=== PATIENT | male | born 1990 | race Caucasian/White ===

== ENCOUNTER 2024-10-17 12:49 | Outpatient (CLI) | payer OTHER, SELFPAY ==
--- NOTE | 2024-10-17 13:05 | XR_ITS ---
WS: [id number] Exam: XR hip BI 3-4V wo/w pel [id number] Date/Time of Exam: 10/17/2024 1:07 PM Reason For Exam: BILATERAL HIP PAIN No fracture. The joint compartments of both hips are well preserved. Normal bilateral soft tissues. XR/XR hip BI 3-4V wo/w pel [id number] IMPRESSION: 1. Negative RIGHT and LEFT hips.
--- NOTE | 2024-10-17 13:06 | XR_ITS ---
WS: [id number] Exam: XR knee RT 3V* [id number] Date/Time of Exam: 10/17/2024 1:07 PM Reason For Exam: RT KNEE PAIN; STIFFNESS/SWELLING No fracture noted. The joints are well preserved. Soft tissues are unremarkable. An osteochondroma is noted along the medial metaphysis of the lower femur. XR/XR knee RT 3V* [id number] IMPRESSION: 1. Osteochondroma seen along the medial lower femoral metaphysis. 2. No fracture or other significant finding.
== END 2024-10-17 12:50 | disposition home or self-care (01) ==
DX: D16.21 Benign neoplasm of long bones of right lower limb (principal); M25.552 Pain in left hip
CPT/HCPCS: 73522; 73562